=== PATIENT | male | born 1980 | race African-American/Black ===

== ENCOUNTER 2018-02-28 03:50 | Inpatient (IN) ==
[2018-02-28] MEDS ORDERED: Aluminum/Magnesium/Simethacone Susp 30 ML UDC PO PRN (09:29)
[2018-02-28] MEDS ORDERED: Acetaminophen 325 MG Tablet PO PRN (09:29)
--- NOTE | 2018-02-28 11:39 | P.HPPSY ---
Provisional Diagnosis Admission Date: February 28, 2018 08:55 [place] I.: 1. Alcohol intoxication, resolved Rule-out alcohol use disorder Rule-out malingering for secondary gain [place] II.: 1. Antisocial personality traits Competence Certification of Person's Competence To Provide Express and Informed Consent I have personally examined Koffi Iniguez, a person being served at [facility] on, February 28, 2018 1138. Express and informed consent means consent voluntarily given in writing, by a competent person, after sufficient explanation and disclosure of the subject matter involved to enable the person to make a knowing and willful decision without any element of force, fraud, deceit, duress, or other form of constraint or coercion. This person is 18 years of age or older, is not now known to be incompetent to consent to treatment with a guardian advocate, and does not have a health care surrogate or proxy currently making medical treatment decisions. I have found this person to be one of the following: [] Competent to provide express and informed consent, as defined above, for voluntary admission to this facility and is competent to provide express and informed consent for treatment. He/she has the consistent capacity to make well reasoned, willful, and knowing decisions concerning his or her medical or mental health treatment. The person fully and consistently understands the purpose of the admission for examination/placement and is fully capable of personally exercising all rights [place] Incompetent to provide express and informed consent to voluntary admission, and this is incompetent to provide express and informed consent to treatment. The person must be transferred to involuntary status and a petition for a guardian advocate filed with the Circuit Court. [X] Refusing to provide express and informed consent to voluntary admission but is competent to provide express and informed consent for treatment. The person must be discharged or transferred to involuntary status. Form shall be completed within 24 hours of a person's arrival at the receiving facility and filed in the clinical record of each person: 1. Admitted on a voluntary basis 2. Permitted to provide express and informed consent to his/her own treatment 3. Allowed to transfer from involuntary to voluntary status 4. Prior to permitting a person to consent to his or her own treatment after having been previously found incompetent to consent to treatment. History of Present Illness Capacity: Has capacity Chief Complaint: [place] Act History of Present Illness: Mr. Iniguez is a 37 year-old male with a chart history of depression who presents in transfer from [facility] [place] under a [place] Act. Documentation from outside hospital reviewed. According to ED provider's notes , patient presented to the ED complaining of SI with plan to cut wrists beginning earlier on the day of presentation to the ED. It is documented that there were no associated symptoms and it is also noted that patient had multiple prior ED visits to outside hospital. Of note, patient's alcohol level at outside hospital was 135. Reviewing our electronic medical record, I see no previous psychiatric contact within our system. Patient seen and examined with nurse. Chart reviewed. Case discussed with nursing staff. No evidence of any suicidality or homicidality since patient has been on inpatient psychiatric unit. On my examination this morning, patient is clinically sober. He is somewhat entitled and unengaged in interview. Antisocial personality traits noted. He complains that he just arrived and missed breakfast. He denies any suicidal or homicidal ideation, intent or plan at this time. I can elicit no depressive or hypomanic/manic symptoms. He denies any audiovisual hallucinations; he does not appear internally stimulated. I can elicit no delusional beliefs. The remainder of the psychiatric ROS is negative. Patient has no physical complaints. He is requesting discharge from the inpatient psychiatric unit today. Past psychiatric history: Patient is somewhat vague regarding psychiatric history. When asked about a history of previous psychiatric diagnoses, patient replies "yeah, I guess." He is not presently under the care of a psychiatrist. He denies any history of psychiatric admissions or suicide attempts. Family history: Patient denies any family history of serious mental illness or suicide. Chemical dependency history: Patient admits to use of alcohol. When I try to inquire about the quantity, he instructs me churlishly to consult the lab report for his alcohol level. He denies any history of DTs or seizures. No other substance use reported. Social history: Patient declines to provide social history when asked. No reported access to guns or firearms. Patient has provided consent to contact parents for collateral information. I did try to call parents at number provided ([phone]) on two occasions; both times this number kept ringing with no opportunity to leave voicemail. - Inpatient Certification Plans for Post Hospital Care: Home Review of Systems All other systems reviewed negative except as stated in HPI PMFSH - History History Provided By: Patient - Tobacco History Second Hand Smoke Exposure: No Tobacco Use In Past 30 Days: Yes Smoking Status: Current every day smoker Tobacco Type: Cigarettes - Alcohol History How Often Do You Have a Drink Containing Alcohol: 4 or more times a week - Substance Use History Substance History: Active Abuse - Substance Use Type Alcohol Status: Active Route Used: By Mouth Frequency: daily 3-4 tall boys Last Used: 02/26/18 Reason for Use: Feels Good - Travel History Recent Travel in the [place] Within the Last 8 Weeks: No Recent Travel Out of the Country Within the Last 8 Weeks: No Quality Measures - Psychiatric History Psychological trauma history: No reported trauma history to me - Patient Strengths Patient's strengths (minimum of 2): Attending to basic needs. Verbally fluent. Medications and Allergies Active Medications: Active Medications Acetaminophen (Tylenol) 650 mg PO Q4H PRN PRN Reason: Pain 1-5 or Temp >101F Al Hydrox/Mg Hydrox/Simethicone (Mag-Al Plus Susp Liq) 30 ml PO Q6H PRN PRN Reason: DYSPEPSIA Al Hydroxide/Mg Hydroxide (Milk Of Magnesia Liq) 30 ml PO Q12H PRN PRN Reason: Mild Constipation Melatonin (Melatonin) 5 mg PO HS PRN PRN Reason: INSOMNIA Nicotine (Habitrol 21 Mg Patch.24 Hr) 1 patch T-DERMAL DAILY PRN PRN Reason: Nicotine craving Patch Removal (Remove Old Patch) 1 each T-DERMAL DAILY ROB Allergies Allergy/AdvReac Type Severity Reaction Status Date / [facility] AdvReac Unknown Unverified 02/28/18 09:28 Results - Labs Labs: Laboratories from outside hospital reviewed: CBC reveals mild leukocytosis with white blood cell count of 11.35. Hemoglobin and platelet count are within normal limits. BMP revealed mild hypernatremia at 147. Tylenol and salicylate level undetectable. Alcohol level 135. Urine toxicology negative. Exam Vital signs: Vital Signs 02/28/18 11:02 Temperature 98.3 F Pulse Rate 70 Respiratory Rate 16 Blood Pressure 118/78 Pulse Oximetry 96 Intake & Output 02/27/18 02/28/18 02/28/18 18:59 06:59 18:59 Weight 117.4 kg Other: Weight On Admission 117.4 kg Narrative: Physical examination completed by ED provider at outside hospital. On my examination today, the patient appears to be in no acute physical distress. No motor abnormalities noted. No signs of intoxication or withdrawal noted. Labs and vital signs reviewed. Mental Status Examination Appearance: Appropriate Consciousness: Alert Orientation: x4 Motor Activity: Other (No motor abnormalities noted) Speech: Unremarkable Language: Adequate Fund of Knowledge: Adequate Attention and Concentration: Adequate (No evidence of delirium.) Memory: Unremarkable (Grossly intact on clinical exam) Mood: Other (Mildly irritable) Affect: Irritable (Mild) Thought Process & Associations: Intact, Logical, Goal directed, Linear Thought Content: Appropriate Hallucination Type: None Delusion Type: None Suicidal Ideation: No Suicidal Plan: No Suicidal Intention: No Homicidal Ideation: No Homicidal Plan: No Homicidal Intention: No Mental Status Exam Remarks: Insight and judgment are perhaps fair to poor. Assessment and Plan - Assessment (1) Alcohol intoxication Code(s): F10.929 - Alcohol use, unspecified with intoxication, unspecified Status: Acute - Plan Plan: 37-year-old male with psychiatric history as detailed above who presents in transfer from outside hospital under a [place] act. On my examination today, the patient is clinically sober. He denies any suicidal or homicidal ideation, intent or plan. There is no evidence of any unstable mental illness as defined under the [place] act in this patient at this time. He appears to be attending to his basic needs. My suspicion is that the patient was intoxicated with alcohol when he made report of symptoms to outside hospital ED provider. Weighing the acute, chronic and protective factors and based on the available evidence, I agricultural service technician that the patient does not meet the Mon[place] act criteria. There is no evidence of imminent risk of harm to self or others at this point, nor is there evidence of self-care deficit to substantiate involuntary psychiatric hospitalization. Substance use issues and antisocial personality style may confer some degree of chronic but not acute or imminent risk, but neither substance use nor antisocial personality style are likely to be ameliorated by hospitalization on the general inpatient psychiatric unit, nor do these meet criteria for mental illness as defined under the [place] Act. Patient is requesting discharge from the inpatient psychiatric unit today, and I have no basis to retain him over his objection. Patient will be discharged today with psychiatric follow-up as arranged by counselor. Patient is also to follow-up with primary care. I have counseled the patient to abstain from substances of abuse including alcohol and have recommended chemical dependency evaluation and treatment on outpatient basis. I have counseled the patient to return to the psychiatric emergency room for any concerning symptoms as part of a general safety plan. I have provided no prescriptions on discharge. This note serves also as my discharge summary. Justification for Continued Inpatient Stay: N/A.
[2018-02-28] MEDS ORDERED: Melatonin 5 MG Tablet PO PRN (21:00)
== END 2018-02-28 15:00 | disposition home or self-care (01) ==
LOC: H270 08:55
PROVIDERS: ADMIT Psychiatry & Neurology Psychiatry; ATTEND Psychiatry & Neurology Psychiatry